=== PATIENT | male | born 1965 | race Caucasian/White ===

== ENCOUNTER 2018-10-24 07:22 | Emergency (ER) | payer OTHER ==
--- NOTE | 2018-10-24 07:47 | EDM.PDOC ---
ED HPI GENERAL MEDICAL PROBLEM - General Chief Complaint: ENT Problem Stated Complaint: EAR PAIN [id number] Time Seen by Provider: 10/24/18 07:40 Source of Information: Reports: Patient, RN, RN Notes Reviewed History Limitations: Reports: No Limitations - History of Present Illness INITIAL COMMENTS - FREE TEXT/NARRATIVE: Pt to ER with c/o left ear pain. Patient states the pain began yesterday evening , and has progressively gotten worse throughout the night. Patient states the left side of the face hurts as well. Denies visual disturbance. Denies fever or chills, N/V/D. Admits to headache. Has taken Aleve, Cat, and Oxycodone for pain without relief. Onset: Gradual Location: Reports: Head, Face Quality: Reports: Ache, Throbbing Severity: Moderate Improves with: Reports: None Worsens with: Reports: None Associated Symptoms: Reports: No Other Symptoms Treatments PROCESSOR GRAIN: Reports: Acetaminophen, NSAIDS, Other Medication(s) Left Ear Pain Score (Numeric/FACES): 7 - Related Data Allergies Allergy/AdvReac Type Severity Reaction Status Date / Time No Known Allergies Allergy Verified 10/24/18 07:31 Home Meds: Home Meds oxyCODONE HCl/Acetaminophen [Percocet 5-325 mg Tablet] 1 tab PO DAILY 10/24/18 [ History] Past Medical History - Past Health History Medical/Surgical History: Denies Medical/Surgical History Social & Family History - Family History Family Medical History: Noncontributory - Tobacco Use Smoking Status *Q: Current Every Day Smoker Years of Tobacco use: 32 Packs/Tins Daily: 0.5 - Caffeine Use Caffeine Use: Reports: Coffee - Recreational Drug Use Recreational Drug Use: No ED ROS ENT - Review of Systems Review Of Systems: ROS reveals no pertinent complaints other than HPI. ED EXAM, ENT - Physical Exam Exam: See Below Exam Limited By: No Limitations General Appearance: Alert, WD/WN, No Apparent Distress Eye Exam: Left Eye: EOMI, Normal Inspection, PERRL (3 brisk) Ears: Normal External Exam, Normal Canal, Hearing Grossly Normal, TM Dullness ( left), TM Fluid (left). No: TM Erythema Nose: Normal Inspection, Normal Mucousa, No Blood Mouth/Throat: Normal Inspection, Normal Gums, Normal Lips, Normal Oropharynx, Normal Teeth Head: Atraumatic, Normocephalic Neck: Supple, Full Range of Motion, Lymphadenopathy (L), Lymphadenopathy (R), Tender Lateral Respiratory/Chest: No Respiratory Distress, Lungs Clear, Normal Breath Sounds, No Accessory Muscle Use, Chest Non-Tender Cardiovascular: Normal Peripheral Pulses, Regular Rate, Rhythm, No Edema, No Gallop, No JVD, No Murmur, No Rub GI/Abdominal: Normal Bowel Sounds, Soft, Non-Tender, No Organomegaly, No Distention, No Abnormal Bruit, No Mass (Male) Exam: Deferred Rectal (Males) Exam: Deferred Back: Normal Inspection, Full Range of Motion Extremities: Normal Inspection, Normal Range of Motion, Non-Tender, No Pedal Edema, Normal Capillary Refill Neurological: Alert, Oriented, CN II-XII Intact, Normal Cognition, Normal Gait, Normal Reflexes, No Motor/Sensory Deficits Psychiatric: Normal Affect, Normal Mood Skin: Warm, Dry, Intact, Normal Color, No Rash Lymphatic: Adenopathy (Bilateral Anterior Cervical +2) Course - Vital Signs Last Recorded V/S: Last Vital Signs Temp 97 F 10/24/18 07:32 Pulse 91 10/24/18 07:32 Resp 16 10/24/18 07:32 BP 136/92 H 10/24/18 07:32 Pulse Ox 96 10/24/18 07:32 Departure - Departure Time of Disposition: 07:45 Disposition: Home, Self-Care 01 Condition: Fair Clinical Impression: Left ear pain Sinusitis Qualifiers: Sinusitis location: unspecified location Chronicity: acute Recurrence: not specified as recurrent Qualified Code(s): J01.90 - Acute sinusitis, unspecified - Discharge Information *PRESCRIPTION DRUG MONITORING PROGRAM REVIEWED*: No *COPY OF PRESCRIPTION DRUG MONITORING REPORT IN PATIENT ELENA: No Instructions: Sinusitis, Adult, Tawa-ya-Fnot, How to Perform a Sinus Rinse, Aixf-iy-Aaev Forms: ED Department Discharge Additional Instructions: RX: Augmentin May alternate Tylenol and Ibuprofen as directed for pain May use heat to the area for comfort May use Over the counter Decongestant as directed Use Flonase as directed Follow up with your primary care facility next week if no improvement
== END 2018-10-24 07:51 | disposition home or self-care (01) ==
LOC: DL.ED 07:22
DX: J01.90 Acute sinusitis, unspecified (principal); H92.02 Otalgia, left ear; F17.210 Nicotine dependence, cigarettes, uncomplicated
CPT/HCPCS: 99282

== ENCOUNTER 2019-10-25 05:53 | Day surgery (SDC) | payer OTHER ==
[2019-10-25] MEDS ORDERED: fentaNYL 100 MCG/2 ML SDV IV ONE ×3 (05:54→06:59)
[2019-10-25] MEDS ORDERED: Midazolam 1 MG/ML 2 ML SDV IV ONE ×3 (05:54→07:00)
[2019-10-25] MEDS ORDERED: Sodium Chloride 0.9% 10 ML Syringe FLUSH PRN (06:00)
[2019-10-25] MEDS ORDERED: Dextrose 5%-0.45% NaCl 1,000 ML IV SCH (06:00)
[2019-10-25] MEDS ORDERED: Midazolam 1 MG/ML 2 ML SDV ONE (06:11)
[2019-10-25] MEDS ORDERED: fentaNYL 100 MCG/2 ML SDV ONE (06:12)
--- NOTE | 2019-10-25 07:58 | OR ---
DATE: 10/25/2019 PROCEDURES: Esophagogastroduodenoscopy, multiple pinch biopsies. INSTRUMENT USED: [id number]-HQ190 Olympus video panendoscope. PREMEDICATIONS: No oral or topical anesthesia used. Fentanyl 100 mcg intravenous, Versed 2 mg intravenous. The procedure was done under pulse oximetry, BP recording, and shoe repairer. INDICATION: The patient with persistent longstanding heartburn, unexplained and not responsive to medical measures. Esophagogastroduodenoscopy is performed for detection of any active erosive lesions, Orozco esophagus and/or malignancy also under consideration, H pylori status to be determined, endoscopic hemostasis therapy if needed. PROCEDURE IN DETAIL: The scope was passed with ease. Adequate visualization of the esophagus was made from proximal to distal areas. No upper esophageal lesions identified. No distal esophageal stricture. No uphill or downhill esophageal varices. No Dorene-Ramirez tear. No evidence of erosive esophagitis by [place] criteria. No esophageal polyp or tumor mass identified. Z-line was seen at around 40 cm distal to the oral verge, configuration consistent with grade 1 by ZAP classification. No proximal gastric varices noted. Gastric fundus examination by retroflexion showed no polypoid lesions. No gastric ulcer, malignant mass, or vascular ectasia identified. Duodenal bulb showed no ulcer. Visualized second part of the duodenum was unremarkable. Multiple pinch biopsies were taken from the gastric antrum and proximal body and sent for PyloriTek test for H pylori, and if negative in an hour, the tissue is to be sent for histopathology. No bleeding was noted from any of the visualized areas at the completion of examination. Photographs were taken of the duodenal bulb, gastric antrum, fundus, and distal esophagus. IMPRESSION: Normal study. The patient tolerated the procedure well. [facility] /[id number]
== END 2019-10-25 09:15 | disposition home or self-care (01) ==
LOC: DL.ENDO 05:53
PROVIDERS: ATTEND Internal Medicine Gastroenterology
DX: R12 Heartburn (principal); M54.5 Low back pain; F17.210 Nicotine dependence, cigarettes, uncomplicated; E78.5 Hyperlipidemia, unspecified; R73.09 Other abnormal glucose
CPT/HCPCS: 43239; 87077; J2250; J3010; J7042

== ENCOUNTER 2019-10-28 05:55 | Day surgery (SDC) | payer OTHER ==
[2019-10-28] MEDS ORDERED: fentaNYL 100 MCG/2 ML SDV IV ONE ×5 (05:56→07:26)
[2019-10-28] MEDS ORDERED: Midazolam 1 MG/ML 2 ML SDV IV ONE ×7 (05:56→07:16)
[2019-10-28] MEDS ORDERED: Dextrose 5%-0.45% NaCl 1,000 ML IV SCH (06:00)
[2019-10-28] MEDS ORDERED: Sodium Chloride 0.9% 10 ML Syringe FLUSH PRN (06:00)
[2019-10-28] MEDS ORDERED: fentaNYL 100 MCG/2 ML SDV ONE (06:13)
[2019-10-28] MEDS ORDERED: Midazolam 1 MG/ML 2 ML SDV ONE (06:13)
--- NOTE | 2019-10-28 13:09 | OR ---
DATE: 10/28/2019 PROCEDURES: Total colonoscopy, narrow band imaging, and multiple cold snare polypectomies. INSTRUMENT USED: [id number]-[id number] Olympus video colonoscope. PREMEDICATIONS: Fentanyl 150 mcg intravenous, Versed 4 mg intravenous. The procedure was done under pulse oximetry, BP recording, and manager monitoring. INDICATION: The patient with alternating constipation and diarrhea as well as abdominal pain, unexplained, not responsive to medical measures. Colonoscopic examination is done for detection of any polypoid lesions and removal, endoscopic hemostasis therapy if needed. DESCRIPTION OF PROCEDURE: Initial rectal exam was unremarkable. Rigid anoscopy showed small internal hemorrhoids without bleeding from them. The colonoscope was passed with ease up to the ileocecal area. Photographs were taken of the normal-appearing cecum identified by landmarks of appendiceal orifice and double- bulged ileocecal folds. Multiple diminutive benign-appearing polyps were noted in the rectosigmoid area, 3 in number. Multiple cold snare polypectomies were done. The tissues were retrieved and sent for histopathology. In the mid descending colon, 5 mm sized benign-appearing polyp was noted. Cold snare polypectomy was done. The tissue was retrieved and sent for histopathology. In the area of hepatic flexure, 8 mm sized benign-appearing sessile polyp was noted. NBI views were obtained. Cold snare polypectomy was done. The tissues were retrieved and sent for histopathology. No stricture. No vascular ectasia. No large isolated ulcerations seen. No evidence of diffuse inflammatory bowel disease in the form of friability, contact bleeding, or ulcerations. No bleeding was noted from any of the visualized areas at the commencement of the examination. Bowel preparation was found to be adequate. [place] Scale 2 in all the regions, total score 6. Probing the proximal sides of folds and flexures using adequate distention and clearing up the stool material, withdrawal of the scope was made. Cecum to rectum time over 6 minutes. No bleeding was noted from any of the visualized areas at the completion of the examination. IMPRESSION: 1. Internal hemorrhoids. 2. Multiple colonic polyps. The patient tolerated the procedure well. [facility] /[id number]
== END 2019-10-28 09:45 | disposition home or self-care (01) ==
LOC: DL.ENDO 05:55
PROVIDERS: ATTEND Internal Medicine Gastroenterology
DX: D12.3 Benign neoplasm of transverse colon (principal); D12.4 Benign neoplasm of descending colon; D12.8 Benign neoplasm of rectum; K64.8 Other hemorrhoids; M54.5 Low back pain; F17.210 Nicotine dependence, cigarettes, uncomplicated; E78.5 Hyperlipidemia, unspecified; R73.9 Hyperglycemia, unspecified; Z98.890 Other specified postprocedural states
CPT/HCPCS: 45385; J2250; J3010; J7042

== ENCOUNTER 2021-02-20 14:15 | Emergency (ER) | payer OTHER ==
[2021-02-20] MEDS ORDERED: Sodium Chloride 0.9% 10 ML Syringe FLUSH PRN (17:24)
[2021-02-20] MEDS ORDERED: Dexamethasone 4 MG/ML SDV IVPUSH ONE (17:24)
--- NOTE | 2021-02-20 18:34 | CT ---
PROCEDURE INFORMATION: Exam: CT Lumbar Spine Without Contrast Exam date and time: 02/20/2021 5:56 PM Age: 55 years old Clinical indication: Low back pain; Additional info: Left lumbar pain radiates to left foot w/leg numbness and weakness of left lower extremity. HX of chronic low back pain without radicular symptoms TECHNIQUE: Imaging protocol: Computed tomography images of the lumbar spine without contrast. Radiation optimization: All CT scans at this facility use at least one of these dose optimization techniques: automated exposure control; mA and/or kV adjustment per patient size (includes targeted exams where dose is matched to clinical indication); or iterative reconstruction. COMPARISON: MR Lumbar Spine Comp wo Cont 08/21/2018 8:53 AM FINDINGS: Vertebrae: No acute fracture or spondylolisthesis. Vertebral body heights are maintained. Discs/Spinal canal/Neural foramina: No significant disc protrusion. No severe spinal canal stenosis. No significant neural foraminal narrowing. Soft tissues: Unremarkable. IMPRESSION: No acute findings.
--- NOTE | 2021-02-20 18:44 | EDM.PDOC ---
"Scribed by No Meek 02/20/21 [id number] for Fawad Turner MD ED HPI GENERAL MEDICAL PROBLEM - General Chief Complaint: Back Pain or Injury Stated Complaint: BACK PAIN / HAS DISC ISSUES Time Seen by Provider: 02/20/21 17:21 Source of Information: Reports: Patient, RN, RN Notes Reviewed History Limitations: Reports: No Limitations - History of Present Illness INITIAL COMMENTS - FREE TEXT/NARRATIVE: Patient presents to ED by POV stating that [facility] and has had back issues for 12 years. Patient gets injections but states that they only last for 3 weeks. Patient states he was driving home last night and the back pain was getting worse. Patient states his left leg was tingling most of day and then went numb. Patient states that his left leg is numb, painful,and weak today. Patient states there is a sharp pain in his lower left back. Denies any new injury, strenuous activity, lifting, or bending. Denies saddle area numbness, loss of bowel or bladder control. Onset: Gradual Onset Date: 02/19/21 Duration: Getting Worse Location: Reports: Back Quality: Reports: Ache Severity: Severe Improves with: Reports: None Worsens with: Reports: None Associated Symptoms: Reports: No Other Symptoms Left Lower Back Pain Score (Numeric/FACES): 6 - Related Data Allergies Allergy/AdvReac Type Severity Reaction Status Date / Time No Known Allergies Allergy Verified 02/20/21 14:43 Home Meds: Home Meds oxyCODONE HCl/Acetaminophen [Percocet 5-325 mg Tablet] 5 - 325 tab PO DAILY MDD 4 times per day 10/24/18 [History] Cetirizine [ZyrTEC] 1 tab PO DAILY PRN 10/22/19 [History] Diclofenac Sodium [Voltaren 1% Gel] 2 g TOP DAILY PRN 10/22/19 [History] Multivitamin 1 tab PO DAILY 10/22/19 [History] Meloxicam 15 mg PO DAILY 10/27/19 [History] Past Medical History - Past Health History Medical/Surgical History: Denies Medical/Surgical History HEENT History: Reports: Allergic Rhinitis Cardiovascular History: Reports: High Cholesterol Respiratory History: Reports: None Other Respiratory History: Allergies, smoker Gastrointestinal History: Reports: GERD, Other (See Below) Other Gastrointestinal History: Upper abdominal pain Genitourinary History: Reports: None Musculoskeletal History: Reports: Back Pain, Chronic, Other (See Below) Other Musculoskeletal History: Joint pain Neurological History: Reports: Other (See Below) Other Neuro History: Chronic radicular lumbar back pain Psychiatric History: Reports: None Endocrine/Metabolic History: Reports: Other (See Below) Other Endocrine/Metabolic History: Hyperlipidemia Hematologic History: Reports: None Immunologic History: Reports: None Oncologic (Cancer) History: Reports: None Dermatologic History: Reports: None - Infectious Disease History Infectious Disease History: Reports: None - Past Surgical History Head Surgeries/Procedures: Reports: None GI Surgical History: Reports: EGD Social & Family History - Family History Family Medical History: No Pertinent Family History Endocrine/Metabolic: Reports: Other (See Below) Other Endocrine/Metabolic Family History: Sibling with DM - Tobacco Use Tobacco Use Status *Q: Current Every Day Tobacco User Years of Tobacco use: 30 Packs/Tins Daily: 1 - Caffeine Use Caffeine Use: Reports: Coffee Other Caffeine Use: 1.5 pots/day Caffeine Use Comment: 1.5 pots daily - Recreational Drug Use Recreational Drug Use: No - Living Situation & Occupation Occupation: Employed ED ROS GENERAL - Review of Systems Review Of Systems: Comprehensive ROS is negative, except as noted in HPI. ED EXAM,LOWER BACK PAIN/INJURY - Physical Exam Exam: See Below Exam Limited By: No Limitations General Appearance: Alert, WD/WN, No Apparent Distress Head: Atraumatic, Normocephalic Neck: Normal Inspection, Non-Tender, Full Range of Motion Respiratory/Chest: No Respiratory Distress Cardiovascular: Normal Peripheral Pulses GI/Abdominal: Non-Tender, No Abnormal Bruit, No Mass Back Exam: Full Range of Motion, Paraspinal Tenderness (Left lower lumbar region and left SI region), Vertebral Tenderness (Mild at lower lumbar) Extremities: Normal Range of Motion, No Pedal Edema, Normal Capillary Refill, Leg Pain (Left lower extremity is hypersensitive to firm touch and pain). No: Joint Swelling, Increased Warmth, Mottled, Pallor, Redness Neurological: Alert, Normal Dorsiflexion, CN II-XII Intact, Normal Plantar Flexion, Oriented x 3, Abnormal Sensation (Decreased and altered sensation to touch in left lower extemity at anterior thigh, lateral lower leg and dorsal foot), Straight Leg Raise (L), Other (Antalgic gait favoring left leg). No: Abnormal Motor, Tremor, Saddle Anesthesia Psychiatric: Normal Affect, Normal Mood Skin Exam: Warm, Dry, Intact, Normal Color, No Rash Course - Vital Signs Last Recorded V/S: Last Vital Signs Temp 97.6 F 02/20/21 14:35 Pulse 84 02/20/21 14:35 Resp 18 02/20/21 14:35 BP 154/90 H 02/20/21 14:35 Pulse Ox 97 02/20/21 14:35 - Orders/Labs/Meds Orders: Active Orders 24 hr Category Date Time Status Peripheral IV Care [RC] . DIRECTED Care 02/20/21 17:24 Active Sodium Chloride 0.9% [Saline Flush] Med 02/20/21 17:24 Active 10 ml FLUSH ASDIRECTED PRN Peripheral IV Insertion Adult [OM.PC] Stat Oth 02/20/21 17:24 Ordered Medication Orders Sodium Chloride (Sodium Chloride 0.9% 10 Ml Syringe) 10 ml FLUSH ASDIRECTED PRN PRN Reason: Keep Vein Open Last Admin: 02/20/21 17:42 Dose: 10 ml Documented by: CHARLENE Meds: Medications Generic Name Dose Route Start Last Admin Trade Name Freq PRN Reason Stop Dose Admin Sodium Chloride 10 ml 02/20/21 17:24 02/20/21 17:42 Sodium Chloride 0.9% 10 Ml Syringe FLUSH 10 ml ASDIRECTED PRN Administration Keep Vein Open Discontinued Medications Generic Name Dose Route Start Last Admin Trade Name Freq PRN Reason Stop Dose Admin Dexamethasone 20 mg 02/20/21 17:24 02/20/21 17:41 Dexamethasone 4 Mg/Ml Sdv IVPUSH 02/20/21 17:25 20 mg ONETIME ONE Administration - Radiology Interpretation Free Text/Narrative:: [facility] [place] [facility] Final Radiology Report Call: [phone] assistance Online chat: [email or web address] Name: JARAD JONES Age: 55Years M Date: 02/20/2021 SSN: -- : [id number] Study: CT LUMBAR SPINE WO CONT Requesting Physician: FAWAD TURNER Images: [phone] Addl Studies: Provided Clinical History: left lumbar pain radiates to left foot w/leg numbness and weakness of left lower extremity. Hx of chronic low back pain without radicular symptoms Contrast: Without Contrast Medium: Contrast Amount: Contrast Method: Page 1 of 2 PROCEDURE INFORMATION: Exam: CT Lumbar Spine Without Contrast Exam date and time: 02/20/2021 5:56 PM Age: 55 years old Clinical indication: Low back pain; Additional info: Left lumbar pain radiates to left foot w/leg numbness and weakness of left lower extremity. HX of chronic low back pain without radicular symptoms TECHNIQUE: Imaging protocol: Computed tomography images of the lumbar spine without contrast. Radiation optimization: All CT scans at this facility use at least one of these dose optimization techniques: automated exposure control; mA and/or kV adjustment per patient size (includes targeted exams where dose is matched to clinical indication); or iterative reconstruction. COMPARISON: MR Lumbar Spine Comp wo Cont 08/21/2018 8:53 AM FINDINGS: Vertebrae: No acute fracture or spondylolisthesis. Vertebral body heights are maintained. Discs/Spinal canal/Neural foramina: No significant disc protrusion. No severe spinal canal stenosis. No significant neural foraminal narrowing. Soft tissues: Unremarkable. IMPRESSION: No acute findings. Thank you for allowing us to participate in the care of your patient. JARAD JONES | Final Radiology Report CONFIDENTIALITY STATEMENT This report is intended only for use by the referring physician, and only in accordance with law. If you received this in error, call [phone]. Page 2 of 2 Dictated and Authenticated by: Nick Gonzalez MD 02/20/2021 6:34 PM Central Time ([place] & [place]) - Re-Assessments/Exams Free Text/Narrative Re-Assessment/Exam: 02/20/21 17:58 Pt does not want any medication which would cause him not to be able to drive after taking. Departure - Departure Time of Disposition: 18:44 Disposition: Home, Self-Care 01 Condition: Good Clinical Impression: Acute left lumbar radiculopathy, Acute exacerbation of chronic low back pain - Discharge Information *PRESCRIPTION DRUG MONITORING PROGRAM REVIEWED*: No *COPY OF PRESCRIPTION DRUG MONITORING REPORT IN PATIENT ELENA: No Instructions: Acute Back Pain, Adult, Chronic Back Pain, Lumbosacral Radiculopathy Forms: ED Department Discharge Additional Instructions: Rx: Decadron (Dexamethasone) 4mg Rx: Cyclobenzaprine 10mg *Do not drive while under the influence of this medication. Follow [facility] with your [facility] at the next available appointment. Sepsis Event Note (ED) - Evaluation Sepsis Screening Result: No Definite Risk - Focused Exam Vital Signs: Vital Signs Temp Pulse Resp BP Pulse Ox 02/20/21 14:35 97.6 F 84 18 154/90 H 97 - My Orders Last 24 Hours: My Active Orders 02/20/21 17:24 Peripheral IV Care [RC] . DIRECTED Sodium Chloride 0.9% [Saline Flush] 10 ml FLUSH ASDIRECTED PRN Peripheral IV Insertion Adult [OM.PC] Stat - Assessment/Plan Last 24 Hours: My Active Orders 02/20/21 17:24 Peripheral IV Care [RC] . DIRECTED Sodium Chloride 0.9% [Saline Flush] 10 ml FLUSH ASDIRECTED PRN Peripheral IV Insertion Adult [OM.PC] Stat I have read and agree with the documentation that has been completed regarding this visit. By signing this record, I attest that the documentation was completed in my physical presence and is an accurate record of the encounter."
== END 2021-02-20 19:05 | disposition home or self-care (01) ==
LOC: DL.ED 14:15
DX: M54.16 Radiculopathy, lumbar region (principal); Z72.0 Tobacco use
CPT/HCPCS: 72131; 96374; 99283-25; J1100

== ENCOUNTER 2024-05-21 20:35 | Emergency (ER) | payer OTHER ==
[2024-05-21] MEDS ORDERED: Nitroglycerin 0.4 MG Tab.SL SL PRN (20:49)
[2024-05-21] MEDS ORDERED: Sodium Chloride 0.9% 10 ML Syringe FLUSH PRN (20:49)
[2024-05-21 20:58] LABS: BASOPHILS PERCENT AUTO 0.3 % (0.0-1.0); HEMATOCRIT 42.9 % (40.0-54.0); HEMOGLOBIN 14.7 g/dL (14.0-18.0); LYMPHOCYTES PERCENT AUTO 31.5 % (20.5-50.1); MEAN CORPUSCULAR HEMOGLOBIN 34.3 pg (27.0-34.0); MEAN CORPUSCULAR HGB CONC 34.3 g/dL (33.0-35.0); MEAN CORPUSCULAR VOLUME 100.2 fL (80-100); MONOCYTES PERCENT AUTO 13.5 % (2-8); NEUTROPHILS PERCENT AUTO 52.7 % (42.2-75.2); PLATELET COUNT,PLT 210 10^3/uL (150-450); RED BLOOD CELL COUNT 4.28 10^6/uL (4.6-6.2); WHITE BLOOD CELL COUNT,WBC 6.1 10^3/uL (5.0-10.0)
[2024-05-21] MEDS: Aspirin 81 MG Tab.Chew PO ONE (20:59)
[2024-05-21 21:09] LABS: INR 0.9 (0.9-1.2); PROTHROMBIN TIME 9.7 SEC (9.0-12.0); PTT,PARTIAL THROMBOPLSTIN TIME 27.3 SEC (22.0-34.0)
[2024-05-21 21:12] LABS: APPEARANCE,URINE CLEAR (CLEAR); BILIRUBIN,URINE NEGATIVE (NEGATIVE); COLOR,URINE YELLOW (YELLOW); GLUCOSE,URINE NEGATIVE (NEGATIVE); KETONES,URINE NEGATIVE (NEGATIVE); LEUKOCYTE ESTERASE,URINE NEGATIVE (NEGATIVE); NITRITE,URINE NEGATIVE (NEGATIVE); OCCULT BLOOD,URINE TRACE-INTACT (NEGATIVE); PH,URINE 6.5 (5.0-9.0); PROTEIN,URINE NEGATIVE (NEGATIVE); UROBILINOGEN,URINE 0.2 mg/dL (0.2-1.0)
[2024-05-21 21:13] LABS: A/G RATIO 1.2; ALBUMIN 3.6 g/dL (3.4-5.0); ANION GAP 11.7 mEq/L (7-13); BILIRUBIN TOTAL 0.5 mg/dL (0.2-1.0); BUN/CREATININE RATIO 17.8 (No establ ref range); CALCIUM 8.2 mg/dL (8.5-10.1); CREATININE 0.9 mg/dL (0.70-1.30); EST CRCL DRUG DOSING (CG) 99.4 mL/min; POTASSIUM,K 3.7 mmol/L (3.5-5.1); PROTEIN TOTAL,TP 6.5 g/dL (6.4-8.2)
[2024-05-21 21:23] LABS: BACTERIA,URINE FEW /HPF (0-FEW/HPF); EPITHELIAL CELLS,URINE RARE /HPF (NOT SEEN); MUCUS,URINE FEW /LPF (NOT SEEN); WBC,URINE 0-5 /HPF (0-5/HPF)
[2024-05-21] MEDS: Heparin Sodium/0.45% NaCl 25,000 UNITS/500 ML BAG IV SCH (23:27)
[2024-05-21] MEDS: Heparin Sodium 5,000 Units/ML Vial IVPUSH ONE (23:29)
== END 2024-05-22 00:08 ==
LOC: DL.ED 20:35 → UNDOADMIN 05-22 01:32 → DL.MS 05-22 01:32
DX: I21.4 Non-ST elevation (NSTEMI) myocardial infarction (principal); F17.210 Nicotine dependence, cigarettes, uncomplicated; Z79.891 Long term (current) use of opiate analgesic; Z79.899 Other long term (current) drug therapy
CPT/HCPCS: 36415; 80053; 81001; 83735; 83880; 84484; 85025; 85610; 85730; 93005; 96365; 99285; A9270; J1644